=== PATIENT | female | born 1995 | race Caucasian/White ===

== ENCOUNTER 2017-10-03 10:12 | Emergency (ER) | payer BC ==
--- NOTE | 2017-10-03 10:37 | ED ---
Female Urogenital HPI - General Chief complaint: Urogenital Stated complaint: , cramping and spotting Time Seen by Provider: 10/03/17 10:22 Source: patient Mode of arrival: ambulatory Limitations: no limitations - History of Present Illness Initial comments: This is a 22-year-old female who presents emergency department for vaginal spotting and cramping. The patient states that she had a positive proximally 4 days ago. Her last menstrual period was August 27. She states that she has not had intercourse for approximately one week. She states that she noticed the symptoms yesterday and a little bit more today. She states that she is not passing any clots. She's not having any major amount of bleeding. Just spotting. She denies any lightheadedness, chest pain , shortness of breath. No abdominal pain otherwise. No nausea or vomiting. No diarrhea. No other acute complaints. Last Menstrual Period: 08/27/17 - Related Data Allergies Allergy/AdvReac Type Severity Reaction Status Date / Time No Known Allergies Allergy Verified 10/03/17 10:26 Review of Systems ROS Statement: Those systems with pertinent positive or pertinent negative responses have been documented in the HPI. ROS Other: All systems not noted in ROS Statement are negative. Past Medical History Past Medical History: No Reported History History of Any Multi-Drug Resistant Organisms: None Reported Past Surgical History: No Surgical Hx Reported Past Psychological History: No Psychological Hx Reported Smoking Status: Never smoker Past Alcohol Use History: None Reported Past Drug Use History: None Reported General Exam - General Exam Comments Initial Comments: Constitutional: Awake alert Appears comfortable Head: Normocephalic atraumatic Eyes: no conjunctival injection No scleral icterus EOMI Neck: No JVD Supple Heart: Regular rate rhythm normal S1-S2 no murmurs Lungs: Clear to auscultation bilaterally No wheezing No rales Abdomen: Soft nondistended nontender, no pelvic tenderness Extremities: Non edematous DP pulses intact Radial pulses intact Neuro: A&Ox3 No focal neurologic deficits Psych: Appropriate mood and affect Limitations: no limitations Course Vital Signs 10/03/17 10/03/17 10:21 12:04 Temperature 98.5 F 98.1 F Pulse Rate 76 86 Respiratory 18 16 Rate Blood Pressure 112/73 154/67 O2 Sat by Pulse 99 99 Oximetry Medical Decision Making - Medical Decision Making This is a 22-year-old female who came in for vaginal spotting. Patient was reportedly by home test. Last menstrual period was about 5 weeks ago. The patient had no significant tenderness on pelvic examination. Blood work was reviewed and unremarkable. Beta hCG was 1000. not beyond the discriminatory zone. Ultrasound was not performed however the patient was instructed to have her beta hCG repeated in 2 days. She was given a prescription for this and she is to follow-up with [facility] [employer]AVAS[employer] APPLICATION DEVELOPER for further evaluation. I instructed her if her pain gets acutely worsened or if the bleeding becomes heavier she needs return emergency Department for further evaluation. All questions were answered. - Lab Data Result diagrams: 10/03/17 10:45 10/03/17 10:45 Lab Results 10/03/17 10/03/17 10/03/17 Range/Units 10:45 10:45 10:45 WBC 4.9 (3.8-10.6) k/uL RBC 4.26 (3.80-5.40) m/uL Hgb 13.6 (11.4-16.0) gm/dL Hct 39.1 (34.0-46.0) % MCV 91.7 (80.0-100.0) fL MCH 32.0 (25.0-35.0) pg MCHC 34.9 (31.0-37.0) g/dL RDW 13.1 (11.5-15.5) % Plt Count 171 (150-450) k/uL Neutrophils % 56 % Lymphocytes % 29 % Monocytes % 11 % Eosinophils % 2 % Basophils % 1 % Neutrophils # 2.7 (1.3-7.7) k/uL Lymphocytes # 1.4 (1.0-4.8) k/uL Monocytes # 0.5 (0-1.0) k/uL Eosinophils # 0.1 (0-0.7) k/uL Basophils # 0.1 (0-0.2) k/uL Sodium 140 (137-145) mmol/L Potassium 4.7 (3.5-5.1) mmol/L Chloride 109 H (98-107) mmol/L Carbon Dioxide 19 L (22-30) mmol/L Anion Gap 12 mmol/L BUN 12 (7-17) mg/dL Creatinine 0.64 (0.52-1.04) mg/dL Est GFR (CKD-EPI)AfAm >90 (>60 ml/min/1.73 sqM) Est GFR (CKD-EPI)NonAf >90 (>60 ml/min/1.73 sqM) Glucose 67 L (74-99) mg/dL Calcium 9.2 (8.4-10.2) mg/dL Total Bilirubin 0.4 (0.2-1.3) mg/dL AST 23 (14-36) U/L ALT 13 (9-52) U/L Alkaline Phosphatase 40 (38-126) U/L Total Protein 6.7 (6.3-8.2) g/dL Albumin 3.7 (3.5-5.0) g/dL HCG, Quant 1044.0 mIU/mL Urine Color Urine Appearance (Clear) Urine pH (5.0-8.0) Ur Specific [place] (1.001-1.035) Urine Protein (Negative) Urine Glucose (UA) (Negative) Urine Ketones (Negative) Urine Blood (Negative) Urine Nitrite (Negative) Urine Bilirubin (Negative) Urine Urobilinogen (<2.0) mg/dL Ur Leukocyte Esterase (Negative) Urine RBC (0-5) /hpf Urine WBC (0-5) /hpf Ur Squamous Epith Cells (0-4) /hpf Urine Bacteria (None) /hpf Urine Mucus (None) /hpf Blood Type O Positive Blood Type Recheck No Antibody Screen NEGATIVE Spec Expiration Date 10/06/2017 - 234410/03/17 Range/Units 10:50 WBC (3.8-10.6) k/uL RBC (3.80-5.40) m/uL Hgb (11.4-16.0) gm/dL Hct (34.0-46.0) % MCV (80.0-100.0) fL MCH (25.0-35.0) pg MCHC (31.0-37.0) g/dL RDW (11.5-15.5) % Plt Count (150-450) k/uL Neutrophils % % Lymphocytes % % Monocytes % % Eosinophils % % Basophils % % Neutrophils # (1.3-7.7) k/uL Lymphocytes # (1.0-4.8) k/uL Monocytes # (0-1.0) k/uL Eosinophils # (0-0.7) k/uL Basophils # (0-0.2) k/uL Sodium (137-145) mmol/L Potassium (3.5-5.1) mmol/L Chloride (98-107) mmol/L Carbon Dioxide (22-30) mmol/L Anion Gap mmol/L BUN (7-17) mg/dL Creatinine (0.52-1.04) mg/dL Est GFR (CKD-EPI)AfAm (>60 ml/min/1.73 sqM) Est GFR (CKD-EPI)NonAf (>60 ml/min/1.73 sqM) Glucose (74-99) mg/dL Calcium (8.4-10.2) mg/dL Total Bilirubin (0.2-1.3) mg/dL AST (14-36) U/L ALT (9-52) U/L Alkaline Phosphatase (38-126) U/L Total Protein (6.3-8.2) g/dL Albumin (3.5-5.0) g/dL HCG, Quant mIU/mL Urine Color Yellow Urine Appearance Clear (Clear) Urine pH 6.0 (5.0-8.0) Ur Specific [place] 1.021 (1.001-1.035) Urine Protein Negative (Negative) Urine Glucose (UA) Negative (Negative) Urine Ketones Negative (Negative) Urine Blood Trace H (Negative) Urine Nitrite Negative (Negative) Urine Bilirubin Negative (Negative) Urine Urobilinogen <2.0 (<2.0) mg/dL Ur Leukocyte Esterase Negative (Negative) Urine RBC 1 (0-5) /hpf Urine WBC 1 (0-5) /hpf Ur Squamous Epith Cells 1 (0-4) /hpf Urine Bacteria Rare H (None) /hpf Urine Mucus Rare H (None) /hpf Blood Type Blood Type Recheck Antibody Screen Spec Expiration Date Disposition Clinical Impression: Threatened miscarriage Disposition: HOME SELF-CARE Condition: Stable Instructions: Threatened Miscarriage (ED) Referrals: Marcelo Renner DO [Primary Care Provider] - 1-2 days
[2017-10-03 11:03] LABS: ALT 13 U/L (9-52); AST 23 U/L (14-36); Albumin 3.7 g/dL (3.5-5.0); Alkaline Phosphatase 40 U/L (38-126); Anion Gap 12 mmol/L; Basophils # (A) 0.1 k/uL (0-0.2); Basophils % (A) 1 %; Blood Urea Nitrogen 12 mg/dL (7-17); Calcium 9.2 mg/dL (8.4-10.2); Carbon Dioxide 19 mmol/L (22-30); Chloride 109 mmol/L (98-107); Eosinophils # (A) 0.1 k/uL (0-0.7); Eosinophils % (A) 2 %; Glucose 67 mg/dL (74-99); HCT 39.1 % (34.0-46.0); HGB 13.6 gm/dL (11.4-16.0); Lymphocytes # (A) 1.4 k/uL (1.0-4.8); Lymphocytes % (A) 29 %; MCHC 34.9 g/dL (31.0-37.0); MCV 91.7 fL (80.0-100.0); Mean Platelet Volume 10.2; Monocytes # (A) 0.5 k/uL (0-1.0); Monocytes % (A) 11 %; Neutrophils # (A) 2.7 k/uL (1.3-7.7); Neutrophils % (A) 56 %; Platelet Count 171 k/uL (150-450); Potassium 4.7 mmol/L (3.5-5.1); RBC 4.26 m/uL (3.80-5.40); RDW 13.1 % (11.5-15.5); Sodium 140 mmol/L (137-145); Total Bilirubin 0.4 mg/dL (0.2-1.3); Total Protein 6.7 g/dL (6.3-8.2); WBC 4.9 k/uL (3.8-10.6)
[2017-10-03 11:13] LABS: Appearance,Urine Clear (Clear); Bacteria,Urine Rare /hpf; Bilirubin,Urine Negative (Negative); Blood,Urine Trace (Negative); Color,Urine Yellow; Glucose,Urine (UA) Negative (Negative); Ketones,Urine Negative (Negative); Leukocyte Esterase,Urine Negative (Negative); Mucus,Urine Rare /hpf; Nitrite,Urine Negative (Negative); Protein,Urine Negative (Negative); RBC,Urine 1 /hpf (0-5); Specific Gravity,Urine 1.021 (1.001-1.035); Squamous Epithelial Cell,Urine 1 /hpf (0-4); Urobilinogen,Urine <2.0 mg/dL (<2.0); WBC,Urine 1 /hpf (0-5)
[2017-10-03 12:04] VITALS: BP 154/67; PULSE 86; RESP 16; TEMP 98.1
== END 2017-10-03 12:06 | disposition home or self-care (01) ==
LOC: EC 10:12
DX: O20.0 Threatened abortion (principal); Z3A.01 Less than 8 weeks gestation of pregnancy
CPT/HCPCS: 36415; 80053; 81001; 84702; 85025; 86850; 86900; 86901; 99284

== ENCOUNTER → 2017-10-05 | Outpatient (CLI) | payer BC | END | disposition home or self-care (01) | LOC: LABWHC1 11:06 | PROVIDERS: ATTEND Student in an Organized Health Care Education/Training Program | DX: O20.0 Threatened abortion (principal); Z3A.00 Weeks of gestation of pregnancy not specified | CPT/HCPCS: 36415; 84702 ==

== ENCOUNTER 2018-06-05 23:16 | Inpatient (IN) | payer BC, OTHER ==
[2018-06-06] MEDS ORDERED: LIDOCAINE 1% INJ 10MG/ML (20 ML MDV) SQ PRN (00:05)
[2018-06-06] MEDS: LACTATED RINGERS 1,000 ML IV SCH ×6 (00:05→17:45)
[2018-06-06] MEDS ORDERED: METHYLERGONOVINE 0.2 MG/ML 1 ML AMP IM PRN (00:05)
[2018-06-06] MEDS ORDERED: TERBUTALINE 1 MG/ML VIAL SQ PRN (00:05)
[2018-06-06] MEDS ORDERED: CARBOPROST TROMETHAMINE 250 MCG/ML 1 ML AMP IM PRN (00:05)
[2018-06-06] MEDS ORDERED: OXYTOCIN 10 UNIT/ML 1 ML VIAL IM PRN (00:05)
[2018-06-06 00:07] VITALS: BMI 33.2
[2018-06-06 00:35] LABS: Basophils % (A) 0 %; Eosinophils # (A) 0.1 k/uL (0-0.7); Eosinophils % (A) 1 %; HCT 40.4 % (34.0-46.0); HGB 13.6 gm/dL (11.4-16.0); Lymphocytes # (A) 1.9 k/uL (1.0-4.8); Lymphocytes % (A) 13 %; MCH 31.2 pg (25.0-35.0); MCHC 33.6 g/dL (31.0-37.0); MCV 92.8 fL (80.0-100.0); Mean Platelet Volume 9.6; Monocytes # (A) 1.1 k/uL (0-1.0); Monocytes % (A) 7 %; Neutrophils % (A) 78 %; Platelet Count 184 k/uL (150-450); RBC 4.35 m/uL (3.80-5.40); RDW 13.6 % (11.5-15.5); WBC 15.3 k/uL (3.8-10.6)
[2018-06-06] MEDS ORDERED: BUTORPHANOL 1 MG/ML 1 ML VIAL IV PRN (05:00)
[2018-06-06] MEDS ORDERED: PENICILLIN G POTASSIUM 5,000,000 UNIT in DEXTROSE 5% IN WATER 100 ML IVPB STA ×2 (05:00)
[2018-06-06] MEDS: PENICILLIN G POTASSIUM 2,500,000 UNIT in DEXTROSE 5% IN WATER 100 ML IVPB SCH ×6 (09:35→17:45)
[2018-06-06] MEDS ORDERED: OXYTOCIN 20 UNITS/1000 ML NS 1,000 ML IV SCH ×2 (09:45→16:00)
--- NOTE | 2018-06-06 10:23 | P.HPOB ---
History of Present Illness H&P Date: 06/06/18 Chief Complaint: 38-5/7 weeks, possible early labor The patient is a 23-year-old 1 para 0 admitted through triage at 39-5/7 weeks by good dating parameters with possible early labor having fairly regular contractions. She did make some marginal cervical change while in triage but, of greater concern, had several random heart rate decelerations, one of which lasted for a number of minutes before return to baseline. Otherwise, heart tones are very reassuring. Given the heart rate concerns and the possibility of early labor, the patient was admitted for observation initially. At this time, we have opted to proceed with delivery as she continues to have occasional random decelerations of the heart rate. Her has been otherwise entirely uncomplicated though she is group B strep positive. Antibody prophylaxis has been started. Obstetrical history: 1 para 0 with current statistics listed in history present illness. EDC of 06/08/2018 was established by early ultrasound. Laboratory workup demonstrates a blood type of O+ with a negative antibody screen. Rubella status is immune. The remainder of the laboratory workup was within normal limits. Second trimester Glucola was normal and group B strep status is positive. Gynecologic history: Unremarkable with no history of any infections to include STDs. Review of Systems Review of systems is confined to history of present illness. Past Medical History Past Medical History: No Reported History History of Any Multi-Drug Resistant Organisms: None Reported Past Surgical History: No Surgical Hx Reported Past Anesthesia/Blood Transfusion Reactions: No Reported Reaction Past Psychological History: No Psychological Hx Reported Smoking Status: Never smoker Past Alcohol Use History: None Reported Past Drug Use History: None Reported - Past Family History Father Family Medical History: Cancer Additional Family Medical History / Comment(s): Throat Cancer Medications and Allergies Home Medications Medication Instructions Recorded Confirmed Type Pnv No.95/Ferrous Fum/Folic AC 1 each PO DAILY 06/05/18 06/05/18 History [ Multivitamin Tablet] Allergies Allergy/AdvReac Type Severity Reaction Status Date / Time No Known Allergies Allergy Verified 06/05/18 23:30 Exam Vital Signs Temp Pulse Resp BP 06/06/18 00:03 97.5 F L 98 16 125/78 06/05/18 23:20 97.5 F L 98 16 125/78 Intake and Output 06/05/18 06/06/18 06/06/18 22:59 06:59 14:59 Intake Total 1000 Balance 1000 Intake: Intake, IV Titration 1000 Amount Lactated Ringers 1,000 ml 1000 @ 125 mls/hr IV .Q8H [facility] Rx#:[id number] Other: # Voids 3 Weight 93.44 kg In general, this is a well-developed, well-nourished white female in no acute distress. Her heart has a regular rhythm and rate without murmur. Her lungs are clear to auscultation bilaterally in all samaniego. Her abdomen is gravid, nondistended, has normal active bowel sounds, is soft, nontender, and without any palpable masses aside from uterine fundus. Her extremities are without any cyanosis, clubbing, or edema and are nontender to palpation bilaterally. Digital cervical examination demonstrates her cervix to be approximately 3 cm dilated, 70% effaced, with the vertex in presentation at -2 station. Artificial rupture of membranes is carried out demonstrating clear fluid. Results Result Diagrams: 06/06/18 00:02 Abnormal Lab Results - Last 24 Hours (Table) 06/06/18 Range/Units 00:02 WBC 15.3 H (3.8-10.6) k/uL Neutrophils # 12.0 H (1.3-7.7) k/uL Monocytes # 1.1 H (0-1.0) k/uL Assessment and Plan (1) Group B streptococcal infection in Current Visit: Yes Status: Acute Code(s): O98.819 - OTH MATERNAL INFEC/ PARASTC DISEASES COMP PREG, UNSP TRI; B95.1 - STREPTOCOCCUS, GROUP B, CAUSING DISEASES CLASSD ELSWHR SNOMED Code(s): 837991079 (2) Term Current Visit: Yes Status: Acute Code(s): Z34.80 - ENCOUNTER FOR SUPRVSN OF NORMAL , UNSP TRIMESTER SNOMED Code(s): 40672751 Plan: As she did make some marginal cervical change the, the diagnosis of labor is likely. Of greater concern were the random decelerations in heart rate. Given both of these findings, we have opted to proceed with delivery. Pitocin augmentation has been started and she has had artificial rupture of membranes. She will continue to have close maternal and surveillance and expectant management will be practiced. Antibiotic prophylaxis has been started for group B strep. She is a good candidate for either IV or epidural analgesia, whichever she may choose.
[2018-06-06] MEDS ORDERED: ROPIVACAINE 100 MG, fentaNYL (PF) 200 MCG in SODIUM CHLORIDE 0.9% 76 ML EPIDURAL ONE (12:53)
[2018-06-06] MEDS ORDERED: CITRIC ACID-SODIUM CITRATE 15 ML CUP PO ONE ×2 (15:02→15:03)
[2018-06-06] MEDS ORDERED: ceFAZolin IN SWFI 2 GM/20 ML SYRINGE IVP ONE (15:15)
[2018-06-06] MEDS ORDERED: ZOLPIDEM 5 MG TAB PO PRN (15:54)
[2018-06-06] MEDS ORDERED: SIMETHICONE 80 MG CHEWABLE PO PRN (15:54)
[2018-06-06] MEDS ORDERED: NALOXONE 0.4 MG/ML 1 ML VIAL IV PRN (15:54)
[2018-06-06] MEDS ORDERED: ACETAMINOPHEN TAB 325 MG TAB PO PRN (15:54)
[2018-06-06] MEDS ORDERED: diphenhydrAMINE 25 MG CAP PO PRN (15:54)
[2018-06-06] MEDS ORDERED: METOCLOPRAMIDE 5 MG/ML 2 ML VIAL IVP PRN (15:54)
[2018-06-06] MEDS ORDERED: HYDROmorphone PCA 5 MG/25 ML SYRINGE IV PRN (15:54)
[2018-06-06] MEDS ORDERED: HYDROcodone/APAP 7.5-325MG 1 EACH TAB PO PRN (15:54)
[2018-06-06] MEDS ORDERED: diphenhydrAMINE 50 MG/ML 1 ML VIAL IVP PRN ×2 (15:54)
[2018-06-06] MEDS ORDERED: ONDANSETRON 4 MG/2 ML VIAL IVP PRN (15:54)
[2018-06-06] MEDS ORDERED: diphenhydrAMINE 50 MG CAP PO PRN (15:54)
--- NOTE | 2018-06-06 16:05 | P.OP ---
Date of Procedure: 06/06/18 Preoperative Diagnosis: #1. 39-5/7 weeks, labor #2. Nonreassuring heart tones remote from delivery #3. Group B strep colonization Postoperative Diagnosis: Same plus #4. Nuchal cord 1 Procedure(s) Performed: #1. Urgent primary low-transverse section Anesthesia: spinal Surgeon: Harjit [place] Supervisor #1: Demi Marie Estimated Blood Loss (ml): 350 IV fluids (ml): 900 Urine output (ml): 100 Pathology: other (Placenta) Condition: stable Disposition: floor Operative Findings: Preoperatively the patient had been making progress through the active phase of labor but continued to have fairly regular variable and occasionally deep decelerations with slow return to baseline. At approximately 7-8 cm of dilation , heart tones dipped below [address] for approximately 8-10 minutes though variability was maintained throughout. Pitocin was stopped and position changes effected and section called for. Heart tones returned to the 120s to 130s prior to proceeding to the operating room. In the operating room, the patient was delivered by section of a viable 6 lbs. 10 oz. baby girl with Apgars of 8 at 1 minute and 9 at 5 minutes delivered in the occiput anterior position. There was a nuchal cord 1 which was reduced prior to delivering the fetus. The substation design draftsperson was in attendance at the delivery and opted to bring the infant to the special care nursery for further observation and potential workup as she was retracting and working to breathe to some extent. The placenta was delivered manually, intact, and grossly normal with a grossly normal three-vessel cord. The uterus, tubes, and ovaries were entirely normal to inspection. Description of Procedure: The patient was prepped and draped in usual fashion after spinal anesthesia was administered by the anesthesiologist. A Pfannenstiel incision was made and extended into the abdominal cavity without difficulty. The bladder peritoneum was left intact as it was distal to the site of the incision. A 2 cm incision was made in the transverse plane of the lower uterine segment to enter the uterus at which time clear fluid was again noted. The incision was extended in both directions bluntly. The head was encountered deep within the pelvis and was ultimately elevated up and through the incision where the nose and mouth were thoroughly suctioned. The nuchal cord was reduced and the fetus was delivered onto the field where the cord was doubly clamped, cut, and the infant passed for resuscitative measures with weight and Apgars as noted above. A segment of cord was then doubly clamped, cut, and set aside should cord gases become necessary. The placenta was delivered manually and intact as noted above. The uterus was exteriorized and the interior cavity of the uterus swept of any remaining placental or membranous fragments. The margins of the incision were grasped with Chacon clamps and the incision closed in 2 layers. The first layer was a running locking stitch of 0 chromic catgut followed by a running imbricating layer of 0 chromic catgut, each from one side to the other. Following closure hemostasis appeared to be excellent. The posterior cul-de-sac was suctioned with a guard and the uterus returned to the abdominal cavity. The gutters were swept of any remaining blood, fluid, or clot and the incision reexamined and found to be hemostatic. The parietal peritoneum was loosely reapproximated in the layer of muscles examined and found to be hemostatic. The fascia was closed with a single running stitch of 0 Vicryl proceeding from one margin to the other. The subcutaneous tissues were irrigated and made hemostatic with the Bovie, then closed with a running stitch of 30 plain catgut. The skin was reapproximated with a running subcuticular stitch of 4-0 Vicryl from one margin to the other followed by half- inch Steri-Strips placed with Mastisol. Estimated blood loss for the case was approximately 350 mL. There were no complications. All sponge, instrument, and needle counts were correct. The patient tolerated the procedure well and proceeded to the recovery room in stable condition. Both mother and infant are resting comfortably in recovery though the has been taken the special care nursery as noted above.
[2018-06-06] MEDS: KETOROLAC 30 MG/ML 1 ML VIAL IVP PRN ×2 (18:02→23:59)
[2018-06-06] MEDS: SENNOSIDES-DOCUSATE SODIUM 1 EACH TAB PO SCH (19:32)
[2018-06-07] MEDS: LACTATED RINGERS 1,000 ML IV SCH
[2018-06-07 06:39] LABS: Basophils % (A) 0 %; Eosinophils # (A) 0.1 k/uL (0-0.7); Eosinophils % (A) 1 %; HCT 37.2 % (34.0-46.0); HGB 12.4 gm/dL (11.4-16.0); Lymphocytes # (A) 1.6 k/uL (1.0-4.8); Lymphocytes % (A) 9 %; MCH 31.3 pg (25.0-35.0); MCHC 33.4 g/dL (31.0-37.0); MCV 93.8 fL (80.0-100.0); Mean Platelet Volume 9.5; Monocytes % (A) 5 %; Neutrophils # (A) 15.7 k/uL (1.3-7.7); Neutrophils % (A) 84 %; Platelet Count 195 k/uL (150-450); RBC 3.97 m/uL (3.80-5.40); RDW 13.8 % (11.5-15.5); WBC 18.6 k/uL (3.8-10.6)
[2018-06-07] MEDS: SENNOSIDES-DOCUSATE SODIUM 1 EACH TAB PO SCH ×2 (08:38→19:36)
[2018-06-07] MEDS: KETOROLAC 30 MG/ML 1 ML VIAL IVP PRN (08:39)
[2018-06-07 08:58] VITALS: RESP 16
--- NOTE | 2018-06-07 11:25 | P.PN ---
Subjective Progress Note Date: 06/07/18 Principal diagnosis: Postoperative day #1 Slept well. No complaints. Minimal to moderate lochia rubra. Objective - Vital Signs Vital signs: Vital Signs Temp 97.8 F 06/07/18 08:00 Pulse 89 06/07/18 08:00 Resp 16 06/07/18 08:00 BP 117/67 06/07/18 08:00 Pulse Ox 98 06/07/18 08:00 Intake & Output 06/06/18 06/07/18 06/07/18 18:59 06:59 18:59 Intake Total 21.05 600 Output Total 300 850 Balance -278.95 -250 Intake: Intake, IV Titration 21.05 Amount Oxytocin 20 Units/1000 ml 21.05 Ns 1,000 ml @ 1 MILLIUNIT/MIN 3 mls/hr IV .Q24H [facility] Rx#:[id number] Other 600 Output: Urine 300 850 Uretheral (Rosen) 550 Other: # Voids 1 1 1 - Constitutional General appearance: Present: average body habitus, cooperative - EENT Eyes: Present: PERRLA ENT: Present: hearing grossly normal - Neck Neck: Present: normal ROM - Respiratory Respiratory: bilateral: CTA - Cardiovascular Rhythm: regular - Gastrointestinal General gastrointestinal: Present: normal bowel sounds - Integumentary Integumentary Comment(s): Incision clean and dry, intact, no redness or drainage. Fundus firm, midline, symmetric, 18 week size Integumentary: Present: normal - Neurologic Neurologic: Present: CNII-XII intact - Musculoskeletal Musculoskeletal: Present: gait normal, strength equal bilaterally - Psychiatric Psychiatric: Present: A&O x's 3, appropriate affect, intact judgment & insight - Labs CBC & Chem 7: 06/07/18 06:29 Labs: Abnormal Lab Results - Last 24 Hours (Table) 06/07/18 Range/Units 06:29 WBC 18.6 H (3.8-10.6) k/uL Neutrophils # 15.7 H (1.3-7.7) k/uL Assessment and Plan Assessment: Doing well postoperative day #1. CBC stable. No complaints. Plan: May DC IV. Advanced diet and activity. May shower. Time with Patient: Less than 30
[2018-06-07] MEDS: HYDROcodone/APAP 5-325MG 1 EACH TAB PO PRN ×2 (13:02→19:36)
[2018-06-07] MEDS: IBUPROFEN 600 MG TAB PO PRN (16:47)
[2018-06-08] MEDS: IBUPROFEN 600 MG TAB PO PRN ×2 (00:31→06:44)
--- NOTE | 2018-06-08 07:43 | P.DS ---
Providers Date of admission: 06/05/18 23:59 Expected date of discharge: 06/08/18 Attending physician: Harjit Gonzales Primary care physician: [facility] Course: This is a 23-year-old white female 1 para 0 EDC 06/08/2018 at 39-5/7 weeks' gestation. Patient presented in active spontaneous labor. was unremarkable, group B strep cultures positive, rubella status immune, blood type O positive. Penicillin G prophylaxis was initiated and patient received several doses through the course of labor. Please see dictated history and physical for details. Patient ultimately experienced concerning heart tones and the decision was made to proceed with primary low transverse section. She gave to a liveborn female with scores of 8 and 9 at one and 5 minutes respectively. There was a nuchal cord 1 that was documented. Infant weighed 6 lbs. 10 oz. or 3160 g. Please see dictated delivery note for details. This morning the patient is doing well. She is voiding, ambulating and passing flatus without difficulty. Vital signs are stable and she is afebrile. Breasts are not engorged. Fundus is firm and in the midline, symmetric and 18 week size. Extremities are negative for edema. Incision is clean and dry, well approximated, with Steri-Strips applied. Patient is doing well, and is judged to be in very good condition for discharge home. She will follow-up with me in the office in 2 weeks. I have reminded her no intercourse, tampons or douching. She will use [id number] Advil or Aleve as needed for pain, ibuprofen, 600 mg every 6 hours as needed. She will call me with any fevers shakes or chills, foul smelling or copious lochia, with the passage of large blood clots, with any pain not alleviated by over-the- counter products, or indeed with any concerns. No driving, no heavy lifting. Nelson will follow-up with block bolter mule operator as recommended. Patient Condition at Discharge: Good Plan - Discharge Summary Discharge Rx Participant: No New Discharge Prescriptions: No Action Pnv No.95/Ferrous Fum/Folic AC [ Multivitamin Tablet] 1 each PO DAILY Discharge Medication List Pnv No.95/Ferrous Fum/Folic AC [ Multivitamin Tablet] 1 each PO DAILY [History] Follow up Appointment(s)/Referral(s): Mary Leon MD [Primary Care Provider] - 2 Weeks Discharge Disposition: HOME SELF-CARE
[2018-06-08 08:48] VITALS: BP 133/78; PULSE 95; TEMP 98.1
[2018-06-08] MEDS: SENNOSIDES-DOCUSATE SODIUM 1 EACH TAB PO SCH (10:41)
--- NOTE | 2018-06-09 12:36 | P.MSEPDOC ---
Presenting Problems - Arrival Data Date of Arrival on Unit: 06/06/18 Time of Arrival on Unit: 00:10 Mode of Transport: Wheelchair - Complaint OB-Reason for Admission/Chief Complaint: Possible Onset of Labor Comment: Contractions every 4 minutes since 2029 Medical History - Information : 1 Para: 0 Term: 0 : 0 Abortions: Spontaneous or Elective: 0 Number of Living Children: 0 - Gestational Age Gestational Age by LOUIS (wks/days): 39 Weeks and 5 Days - History Complications: GBS+ Review of Systems - Review of Systems Constitutional: No problems Breast: No problems ENT: No problems Cardiovascular: No problems Respiratory: No problems Gastrointestinal: No problems Genitourinary: No problems Musculoskeletal: No problems Neurological: No problems Skin: No problems Vital Signs - Temperature Temperature: 98.1 F Temperature Source: Oral - Pulse Pulse Oximetery Pulse Rate: 95 Pulse Assessment Method: Automatic Cuff - Respirations Respiratory Rate: 16 Oxygen Delivery Method: Room Air - Blood Pressure Sitting Blood Pressure: 133/78 Blood Pressure Mean: 96 Blood Pressure Source: Automatic Cuff Medical Screen Scoring (Pre) - Cervical Exam Dilation: 1-3 cm = 1 Membranes: Intact - Uterine Contractions Frequency: > or = 36 weeks =2 Duration: > 40 seconds = 2 Intensity: N/A - Maternal Vital Signs Maternal Temperature: N/A Maternal Blood Pressure: N/A Signs of Preeclampsia: N/A Maternal Respirations: N/A - Maternal Trauma Maternal Trauma: N/A - Assessment Baseline FHR: 135 Heart Rate - NICHD Category: Category I (Normal) = 0 NST: Reactive Position: N/A Station: N/A - Total Score Total Score (Pre): 5 - Level of Risk Level of Risk: Low (0-5) Physician Notification (Pre) - Notification Comment Comment: Physician in unit and in to see patient. I agree with the RN Medical Screening Exam: Yes Risk & Benefit of care provided described in d/c instruction: Yes Diagnosis: ENCOUNTER FOR FULL-TERM UNCOMPLICATED DELIVERY
== END 2018-06-08 10:37 | disposition home or self-care (01) | DRG 788 ==
LOC: FBPOP 23:16 → 4FBP 23:59
PROVIDERS: ADMIT Obstetrics & Gynecology; ATTEND Obstetrics & Gynecology
PROC: 10D00Z1 Extraction of Products of Conception, Low, Open Approach (ICD-10-PCS; principal; 2018-06-06 15:15)
DX: O76 Abnormality in fetal heart rate and rhythm complicating labor and delivery (principal); O69.81X0 Labor and delivery complicated by cord around neck, without compression, not applicable or unspecified; O99.824 Streptococcus B carrier state complicating childbirth; Z37.0 Single live birth; Z3A.39 39 weeks gestation of pregnancy; Z80.8 Family history of malignant neoplasm of other organs or systems
CPT/HCPCS: 59025; 85025; 86850; 86900; 86901; 88307; 99213

== ENCOUNTER → 2020-08-16 | Outpatient (CLI) | payer OTHER ==
--- NOTE | 2020-08-16 15:02 | US ---
EXAMINATION TYPE: US OB >= 14 wk fetus DATE OF EXAM: 08/16/2020 COMPARISON: None CLINICAL HISTORY: R10.32 ABD PAIN LLQ, sharp LLQ pain last night that is dull today, TECHNIQUE: OBTA GESTATIONAL AGE / DATING Physician Established: (16 weeks/5 days) EDC: 01/26/2021 Dates by LMP: LMP unknown Dates by First Scan: No previous this is first scan Dates by Current Scan: (17 weeks/2 days) EDC: 01/22/2021 SURVEY IUP: Single PLACENTA: Anterior PREVIA: No Previa STEFAN: 11.9 cm Normal CERVICAL LENGTH (transabdominal: norm > 3.0cm): 3.5 cm BIOMETRY PRESENTATION: Variable BPD: 3.9 cm 18 weeks / 0 days HC: 14.1 cm 17 weeks / 4 days AC: 10.8 cm 16 weeks / 6 days FL: 2.2 cm 16 weeks / 5 days ESTIMATED WEIGHT IN GRAMS: 169 grams ESTIMATED WEIGHT IN LBS/OZ: 0 lbs. 6 oz. WEIGHT PERCENTAGE BASED ON ESTABLISHED DATES: 47% HC/AC: 1.3 Normal FL/AC: 20 Abnormal HEART RATE: 134 bpm RHYTHM: Normal Scanned area of patients pain within LLQ, exophytic cyst seen off of left ovary = 2.5cm Tech impression give to Deena at office IMPRESSION: 1. Single intrauterine gestation estimated at 17 weeks 2 days gestation based on current ultrasound m easurements. Cardiac activity measuring 134 bpm was observed during the study
== END | disposition home or self-care (01) ==
LOC: RADUSWWP 14:04
PROVIDERS: ATTEND Obstetrics & Gynecology
DX: O26.892 Other specified pregnancy related conditions, second trimester (principal); Z3A.17 17 weeks gestation of pregnancy
CPT/HCPCS: 76805

== ENCOUNTER 2020-12-08 15:52 | Outpatient (CLI) | payer OTHER ==
[2020-12-08] MEDS ORDERED: LACTATED RINGERS 1,000 ML IV SCH ×2 (17:00→18:30)
[2020-12-08 19:42] VITALS: BP 120/75; PULSE 89; RESP 16; TEMP 98.4
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
== END 2020-12-08 19:40 | disposition home or self-care (01) ==
LOC: FBPOP 15:52
PROVIDERS: ATTEND Obstetrics & Gynecology
DX: O9A.213 Injury, poisoning and certain other consequences of external causes complicating pregnancy, third trimester (principal); Z3A.33 33 weeks gestation of pregnancy; Z53.9 Procedure and treatment not carried out, unspecified reason

== ENCOUNTER 2021-01-21 08:03 | Inpatient (IN) | payer OTHER ==
[2021-01-18 12:09] VITALS: BMI 37.9
[2021-01-21] MEDS ORDERED: CITRIC ACID-SODIUM CITRATE 15 ML CUP PO ONE (08:07)
[2021-01-21] MEDS: LACTATED RINGERS 1,000 ML IV SCH ×4 (08:42→22:41)
--- NOTE | 2021-01-21 09:42 | P.HPOB ---
History of Present Illness H&P Date: 01/21/21 Chief Complaint: For elective repeat section This is a 26-year-old white female 2 para 1001 EDC 01/26/2021 at 39-2/7 weeks' gestation. Patient had a previous section and is declining the option of . She is here for repeat section, declining the option of tubal ligation. She is having irregular mild uterine contractions. Denies fluid leakage or vaginal bleeding. Fetus is been active throughout the . history significant for blood type O positive, rubella status immune. VDRL testing, urine culture, hepatitis B surface antigen, HIV testing, gonorrhea and chlamydia cultures all negative. One-hour Glucola 80. Positive group B strep cultures. Past history is unremarkable. Past surgical history low transverse section 2018 for nonreassuring heart tones. ALLERGIES none known. Current medications vitamins. Family history significant for throat cancer. Social history patient is unmarried, she is a manager pet, she denies tobacco or alcohol use. On exam patient is 5 foot 6 inches, 235 pounds, blood pressure 143/74, pulse 94, respirations 18, temperature 97.0. The general physical exam is within normal limits. The heart rate is consistent with reactive NST. Chest is clear in all samaniego. Extremities reveal no edema. Infant is vertex to Chance's maneuvers. Cervix is long thick and closed. Impression: 39-2/7 weeks intrauterine , here for repeat section, declining option of tubal ligation. Positive group B strep cultures noted. Plan: Antibiotics had been given. We will proceed with repeat low transverse section. All risks and benefits discussed with the patient. Again she is declining option of . Review of Systems Constitutional: Reports as per HPI Past Medical History Past Medical History: No Reported History History of Any Multi-Drug Resistant Organisms: None Reported Past Surgical History: Section Additional Past Surgical History / Comment(s): emergency c section Past Anesthesia/Blood Transfusion Reactions: No Reported Reaction Past Psychological History: No Psychological Hx Reported Smoking Status: Never smoker Past Alcohol Use History: None Reported Past Drug Use History: None Reported - Past Family History Father Family Medical History: Cancer Additional Family Medical History / Comment(s): Throat Cancer Medications and Allergies Home Medications Medication Instructions Recorded Confirmed Type Pnv No.95/Ferrous Fum/Folic AC 1 each PO DAILY 06/05/18 01/21/21 History [ Multivitamin Tablet] Allergies Allergy/AdvReac Type Severity Reaction Status Date / Time No Known Allergies Allergy Verified 01/18/21 12:04 Exam Vital Signs Temp Pulse Resp BP Pulse Ox 01/21/21 08:05 97.0 F L 94 18 143/74 96 Intake and Output 01/20/21 01/21/21 01/21/21 22:59 06:59 14:59 Other: Weight 106.594 kg See dictation under HPI please Assessment and Plan Assessment: 39-2/7 weeks intrauterine , positive group B strep cultures, here for repeat low transverse section, declining option of . All signs reassuring. Plan: Repeat low transverse section at this time. Antibiotics given. All risks benefits and questions addressed. Time with Patient: Less than 30
[2021-01-21 10:02] LABS: Basophils % (A) 0 %; Eosinophils # (A) 0.1 k/uL (0-0.7); Eosinophils % (A) 1 %; HCT 40.2 % (34.0-46.0); HGB 14.4 gm/dL (11.4-16.0); Lymphocytes # (A) 1.5 k/uL (1.0-4.8); Lymphocytes % (A) 16 %; MCHC 35.9 g/dL (31.0-37.0); MCV 92.1 fL (80.0-100.0); Mean Platelet Volume 10.1; Monocytes # (A) 0.5 k/uL (0-1.0); Monocytes % (A) 6 %; Neutrophils # (A) 6.8 k/uL (1.3-7.7); Neutrophils % (A) 75 %; Platelet Count 150 k/uL (150-450); RBC 4.37 m/uL (3.80-5.40); RDW 13.6 % (11.5-15.5); WBC 9.1 k/uL (3.8-10.6)
[2021-01-21] MEDS ORDERED: MORPHINE SULFATE (PF) 0.3 MG/0.3 ML SYR ONE (10:13)
[2021-01-21] MEDS ORDERED: OXYTOCIN 30 UNITS/500 ML NS BAG IV ONE (10:13)
[2021-01-21] MEDS ORDERED: ONDANSETRON 4 MG/2 ML VIAL ONE (10:13)
[2021-01-21] MEDS ORDERED: KETOROLAC 15 MG/ML 1 ML VIAL ONE (10:13)
[2021-01-21] MEDS ORDERED: ePHEDrine SULFATE/0.9% NACL/PF 50 MG/5 ML SYRINGE IV ONE (10:13)
[2021-01-21] MEDS ORDERED: ZOLPIDEM 5 MG TAB PO PRN (11:05)
[2021-01-21] MEDS ORDERED: diphenhydrAMINE 50 MG/ML 1 ML VIAL IVP PRN ×2 (11:05)
[2021-01-21] MEDS ORDERED: diphenhydrAMINE 25 MG CAP PO PRN (11:05)
[2021-01-21] MEDS ORDERED: SIMETHICONE 80 MG CHEWABLE PO PRN (11:05)
[2021-01-21] MEDS ORDERED: ONDANSETRON 4 MG/2 ML VIAL IVP PRN (11:05)
[2021-01-21] MEDS ORDERED: NALOXONE 0.4 MG/ML 1 ML VIAL IV PRN (11:05)
[2021-01-21] MEDS ORDERED: diphenhydrAMINE 50 MG CAP PO PRN (11:05)
[2021-01-21] MEDS ORDERED: METOCLOPRAMIDE 5 MG/ML 2 ML VIAL IVP PRN (11:05)
--- NOTE | 2021-01-21 11:05 | P.OP ---
Date of Procedure: 01/21/21 Preoperative Diagnosis: 39-2/7 weeks intrauterine , previous section declining . Postoperative Diagnosis: Same, liveborn male . Normal-appearing tubes and ovaries bilaterally. Procedure(s) Performed: Repeat low transverse section Anesthesia: spinal Surgeon: Mary Leon Preventive Medicine Physician #1: Chrissy Fang Estimated Blood Loss (ml): 568 IV fluids (ml): 1,200 Urine output (ml): 75 Pathology: none sent Condition: stable Disposition: PACU Description of Procedure: Patient is brought to the operating suite where a spinal with Duramorph is administered without difficulty. Antibiotics are given. She's placed in the dorsal supine position with left lateral uterine displacement. Rosen catheter sent drainage. Bicitra given. The appropriate timeout is performed to assure the proper patient and procedural documentation. The analgesia is topped and noted to be adequate. A repeat low transverse skin incision is made in this is carried down through the subcutaneous tissue which is approximately 6 cm in depth. Fascia is isolated, scored, extended bilaterally with curved Bull scissors. Peritoneum is next identified and incised, there is no bowel or bladder involvement. Bladder blade is placed over the dome of the bladder. Bladder is well from the operative field and therefore not separately dissected. A repeat low transverse uterine incision is made in this is carried down through the myometrium. Artificial amniorrhexis reveals clear fluid. Infant's head is delivered in the occiput anterior position. Umbilical cord is doubly clamped and ligated, he is handed to waiting nurses for evaluation where scores of 9 and 9 at one and 5 minutes respectively were given. time of baby B 1029, placenta delivers manually, inspected and noted to be i ntact with trivascular cord at 10:30. The uterus is then externalized and wiped clean with a sterile sponge to avoid any retained products of conception. The edges of the incision are grasped with Chacon clamps. The uterus is closed in a two-step fashion. First layer is running locking with 0 Vicryl suture, second layer is imbricated with 0 Vicryl suture as well. An additional [id number] sutures placed in the left lower uterine segment. Hemostasis is excellent. Ovaries and tubes appear normal to inspection. Abdomen is suctioned with suction on guard posterior to the uterus and the uterus is gently placed back into the abdominal cavity. Bilateral gutters are inspected and cleaned. Peritoneum is allowed to close by secondary intention. Fascia is reapproximated with a running stitch of 0 Vicryl with excellent reapproximation noted. Subcutaneous tissue is clean and dry. It is irrigated and once again reinspected. It is reapproximated with a 3-0 Vicryl in a running stitch. 4-0 undyed Monocryl is used for final skin closure. Steri-Strips and Mastisol are applied to the wound. Dressing is placed. Uterus is massaged for a small amount of lochia. Rosen is noted to be draining clear urine. Patient is brought back to the recovery room in excellent condition with a blood pressure 135/55, pulse 80, 100% O2 saturation. Patient and her are allowed to begin the bonding experience in the LDR. They are requesting circumcision for their son who weighs 3800 g or 8 lbs. 6 oz.
[2021-01-21] MEDS: ACETAMINOPHEN TAB 500 MG TAB PO SCH (17:23)
[2021-01-21] MEDS: IBUPROFEN 600 MG TAB PO SCH (20:12)
[2021-01-21] MEDS: SENNOSIDES-DOCUSATE SODIUM 1 EACH TAB PO SCH (20:12)
[2021-01-22] MEDS: ACETAMINOPHEN TAB 500 MG TAB PO SCH ×5 (00:37→22:28)
[2021-01-22] MEDS: IBUPROFEN 600 MG TAB PO SCH ×4 (04:12→22:29)
[2021-01-22 05:44] LABS: Basophils % (A) 0 %; Eosinophils # (A) 0.1 k/uL (0-0.7); Eosinophils % (A) 1 %; HCT 36.9 % (34.0-46.0); HGB 12.3 gm/dL (11.4-16.0); Lymphocytes # (A) 1.5 k/uL (1.0-4.8); Lymphocytes % (A) 13 %; MCH 32.5 pg (25.0-35.0); MCHC 33.5 g/dL (31.0-37.0); Mean Platelet Volume 11.5; Monocytes # (A) 0.8 k/uL (0-1.0); Monocytes % (A) 7 %; Neutrophils # (A) 8.6 k/uL (1.3-7.7); Neutrophils % (A) 78 %; Platelet Count 133 k/uL (150-450); RDW 13.8 % (11.5-15.5); WBC 11.1 k/uL (3.8-10.6)
--- NOTE | 2021-01-22 07:01 | P.PN ---
Progress Note - Text 01/22/21 650am 26-year-old female status post with spinal Duramorph. Patient seen and evaluated for postop pain control this morning, patient has a VAS of 3, no complains of nausea vomiting or pruritus.
--- NOTE | 2021-01-22 07:47 | P.PN ---
Subjective Progress Note Date: 01/22/21 Principal diagnosis: Postoperative day #1 Slept well. Positive flatus. Pain well managed. No complaints. Objective - Vital Signs Vital signs: Vital Signs Temp 98.0 F 01/22/21 04:00 Pulse 78 01/22/21 04:00 Resp 16 01/22/21 04:00 BP 125/70 01/22/21 04:00 Pulse Ox 97 01/22/21 04:00 Intake & Output 01/21/21 01/22/21 01/22/21 18:59 06:59 18:59 Intake Total 400 Output Total 400 2550 Balance 0 -2550 Weight 106.594 kg Intake: Oral 400 Output: Urine 400 2550 Uretheral (Rosen) 1000 Other: # Voids 1 - Constitutional General appearance: Present: average body habitus, cooperative - EENT Eyes: Present: PERRLA ENT: Present: hearing grossly normal - Neck Neck: Present: normal ROM - Respiratory Respiratory: bilateral: CTA - Cardiovascular Rhythm: regular - Gastrointestinal Gastrointestinal Comment(s): Incision clean and dry, intact, Steri-Strips applied. Fundus firm, midline, symmetric, 18 week size. - Integumentary Integumentary: Present: normal - Neurologic Neurologic: Present: CNII-XII intact - Musculoskeletal Musculoskeletal: Present: gait normal, strength equal bilaterally - Psychiatric Psychiatric: Present: A&O x's 3, appropriate affect, intact judgment & insight - Labs CBC & Chem 7: 01/22/21 05:02 Labs: Abnormal Lab Results - Last 24 Hours (Table) 01/22/21 Range/Units 05:02 WBC 11.1 H (3.8-10.6) k/uL Plt Count 133 L (150-450) k/uL Neutrophils # 8.6 H (1.3-7.7) k/uL Assessment and Plan Assessment: Doing well postoperative day #1 Plan: Circumcision on her performed. Continue postoperative care. Anticipate discharge home tomorrow. Time with Patient: Less than 30
[2021-01-22] MEDS: SENNOSIDES-DOCUSATE SODIUM 1 EACH TAB PO SCH ×2 (08:13→20:05)
[2021-01-22 16:30] VITALS: PULSE 86
[2021-01-23] MEDS: IBUPROFEN 600 MG TAB PO SCH ×2 (00:25→06:33)
[2021-01-23 01:01] VITALS: RESP 16
[2021-01-23] MEDS: ACETAMINOPHEN TAB 500 MG TAB PO SCH ×2 (03:45→09:45)
--- NOTE | 2021-01-23 07:57 | P.DS ---
Providers Date of admission: 01/21/21 08:03 Expected date of discharge: 01/23/21 Attending physician: Mary Leon Primary care physician: Stated None Hospital Course: This is a 26-year-old white female 2 para 1001 EDC 01/26/2021 at 39-2/7 weeks' gestation. Patient presented for repeat low transverse section. is unremarkable, blood type O+, rubella status immune. Positive group B strep cultures. Please see dictated history and physical for details. Patient underwent a repeat low transverse section and gave to a liveborn male infant with scores of 9 and 9 at one and 5 minutes respe ctively. Infant weight 8 lbs. 6 oz. or 3800 g. Estimated blood loss at surgery 568 mL's. Please see dictated operative note for details. This morning the patient is doing well. She is voiding, ambulating, passing flatus without difficulty. Vital signs are stable and she is afebrile. Fundus is firm and in the midline, symmetric and 18 week size. Extremities are negative for edema. Incision is clean and dry, intact, Steri-Strips applied. Fundus is firm and in the midline, symmetric and 18 week size. Breast-feeding is going well. infant is doing well. Patient is judged to be in very good condition for discharge home. She will follow-up with me in the office in 2 weeks for incision check. She is reminded no intercourse, tampons or douching. We have discussed contraceptive options and we will discuss this further in the office. She will call with any fevers shakes or chills, foul smelling or copious lochia, with the passage of large blood clots, with any pain not alleviated by [id number] products, with any incisional issues, or indeed with any concerns. Assessment: Doing well second post operative day Patient Condition at Discharge: Good Plan - Discharge Summary New Discharge Prescriptions: No Action Pnv No.95/Ferrous Fum/Folic AC [ Multivitamin Tablet] 1 each PO DAILY Discharge Medication List Pnv No.95/Ferrous Fum/Folic AC [ Multivitamin Tablet] 1 each PO DAILY 06/05/18 [History] Follow up Appointment(s)/Referral(s): Mary Leon MD [STAFF PHYSICIAN] - 2 Weeks Discharge Disposition: HOME SELF-CARE
[2021-01-23 08:17] VITALS: BP 118/70; TEMP 97.4
[2021-01-23] MEDS: SENNOSIDES-DOCUSATE SODIUM 1 EACH TAB PO SCH (09:46)
== END 2021-01-23 10:15 | disposition home or self-care (01) | DRG 788 ==
LOC: 4FBP 08:03
PROVIDERS: ADMIT Obstetrics & Gynecology; ATTEND Obstetrics & Gynecology
PROC: 10D00Z1 Extraction of Products of Conception, Low, Open Approach (ICD-10-PCS; principal; 2021-01-21 10:00)
DX: O34.211 Maternal care for low transverse scar from previous cesarean delivery (principal); O99.824 Streptococcus B carrier state complicating childbirth; Z37.0 Single live birth; Z3A.39 39 weeks gestation of pregnancy; Z80.8 Family history of malignant neoplasm of other organs or systems
CPT/HCPCS: 85025; 86850; 86900; 86901

== ENCOUNTER 2023-08-27 10:08 | Inpatient (IN) | payer OTHER ==
[2023-08-24 15:46] VITALS: BMI 37.1
[2023-08-27] MEDS ORDERED: OXYTOCIN 10 UNIT/ML 1 ML VIAL IM PRN (10:17)
[2023-08-27] MEDS ORDERED: TRANEXAMIC 1,000 MG/100ML-NACL 1,000 MG in EMPTY BAG 1 BAG IV PRN (10:17)
[2023-08-27] MEDS ORDERED: miSOPROStoL 200 MCG TAB PO PRN (10:17)
[2023-08-27] MEDS ORDERED: METHYLERGONOVINE 0.2 MG/ML 1 ML AMP IM PRN (10:17)
[2023-08-27] MEDS ORDERED: CARBOPROST TROMETHAMINE 250 MCG/ML 1 ML AMP IM PRN (10:17)
[2023-08-27] MEDS: LACTATED RINGERS 1,000 ML IV ONE (10:28)
[2023-08-27] MEDS ORDERED: OXYTOCIN 30 UNITS/500 ML NS 30 UNIT in SALINE 1 500ML.BAG IV SCH (10:30)
[2023-08-27] MEDS: CITRIC ACID-SODIUM CITRATE 15 ML CUP PO ONE (11:44)
[2023-08-27 11:46] LABS: Basophils % (A) 1 %; Eosinophils # (A) 0.1 k/uL (0-0.7); Eosinophils % (A) 1 %; HCT 38.6 % (34.0-46.0); HGB 13.4 gm/dL (11.4-16.0); Lymphocytes # (A) 1.2 k/uL (1.0-4.8); Lymphocytes % (A) 18 %; MCH 32.8 pg (25.0-35.0); MCHC 34.7 g/dL (31.0-37.0); MCV 94.4 fL (80.0-100.0); Mean Platelet Volume 11.2; Monocytes # (A) 0.4 k/uL (0-1.0); Monocytes % (A) 6 %; Neutrophils # (A) 4.9 k/uL (1.3-7.7); Neutrophils % (A) 73 %; Platelet Count 149 k/uL (150-450); RBC 4.09 m/uL (3.80-5.40); WBC 6.7 k/uL (3.8-10.6)
[2023-08-27] MEDS ORDERED: NALBUPHINE 10 MG/ML (10 ML MDV) ONE (12:09)
[2023-08-27] MEDS ORDERED: ONDANSETRON 4 MG/2 ML VIAL ONE (12:09)
[2023-08-27] MEDS ORDERED: MORPHINE SULFATE (PF) 0.3 MG/0.3 ML SYR ONE (12:09)
[2023-08-27] MEDS ORDERED: OXYTOCIN 10 UNIT/ML 1 ML VIAL ONE (12:09)
[2023-08-27] MEDS ORDERED: PHENYLEPHRINE-0.9% NACL SYG 1,000 MCG/10 ML SYRINGE ONE (12:09)
[2023-08-27 12:15] LABS: Large Platelets Present; RBC Morphology Normal
--- NOTE | 2023-08-27 13:03 | P.HPOB ---
History of Present Illness H&P Date: 08/27/23 Chief Complaint: IUP at 39-0/7 weeks, history of x 2 desires repeat 28-year-old -0-0-2 at 39 weeks of that presents for scheduled repeat section. Patient has been receiving routine care which has been essentially uncomplicated. Patient denies concerns this morning. She notes good movement denies contractions vaginal bleeding or loss of fluid. On blood work this patient is open type of O+, rubella status immune, hepatitis B surface engine negative, HIV negative, RPR is nonreactive, grew beta strep culture is positive. Review of Systems Constitutional: Denies chills, Denies fatigue, Denies fever Ears, nose, mouth and throat: Denies headache Cardiovascular: Reports leg edema Respiratory: Denies dyspnea Gastrointestinal: Denies constipation, Denies diarrhea, Denies nausea, Denies vomiting Genitourinary: Reports Past Medical History Past Medical History: GERD/Reflux Additional Past Medical History / Comment(s): Acid reflux during only. History of Any Multi-Drug Resistant Organisms: None Reported Past Surgical History: Section Additional Past Surgical History / Comment(s): Emergency . Past Anesthesia/Blood Transfusion Reactions: No Reported Reaction Additional Past Anesthesia/Blood Transfusion Reaction / Comment(s): No hx blood transfusion. Past Psychological History: No Psychological Hx Reported Smoking Status: Never smoker Past Alcohol Use History: None Reported Past Drug Use History: None Reported - Past Family History Father Family Medical History: Cancer Additional Family Medical History / Comment(s): Throat Cancer. Medications and Allergies Home Medications Medication Instructions Recorded Confirmed Type Pnv No.95/Ferrous Fum/Folic AC 1 each PO DAILY 06/05/18 08/27/23 History [ Multivitamin Tablet] L.acidoph,Paracasei, B.lactis 1 each PO DAILY 08/24/23 08/27/23 History [Probiotic] Allergies Allergy/AdvReac Type Severity Reaction Status Date / Time No Known Allergies Allergy Verified 08/27/23 10:13 Exam Osteopathic Statement: *. No significant issues noted on an osteopathic structural exam other than those noted in the History and Physical/Consult. Vital Signs Temp Pulse Resp BP Pulse Ox 08/27/23 10:20 96.3 F L 87 16 122/73 100 Intake and Output 02/08/27/23 08/27/23 22:59 06:59 14:59 Other: Weight 104.326 kg Targeted physical exam is performed this date General is well-nourished well- developed female in no acute distress, breathing is noted to be nonlabored, heart has a regular rate and rhythm, abdomen is gravid and appropriate for gestational age, heart tones are noted to be category 1 and she is not mathew, cervical exam is deferred. Results Result Diagrams: 08/27/23 11:06 Abnormal Lab Results - Last 24 Hours (Table) 08/27/23 Range/Units 11:06 Plt Count 149 L (150-450) k/uL Assessment and Plan (1) History of section Current Visit: Yes Status: Acute Code(s): Z98.891 - HISTORY OF UTERINE SCAR FROM PREVIOUS SURGERY SNOMED Code(s): 825791911 (2) Group B streptococcal infection in Current Visit: No Status: Acute Code(s): O98.819 - OTH MATERNAL INFEC/PARASTC DISEASES COMP PREG, UNSP TRI; B95.1 - STREPTOCOCCUS, GROUP B, [facility] Code(s): 855010490 (3) Term Current Visit: No Status: Acute Code(s): Z34.80 - ENCOUNTER FOR SUPRVSN OF NORMAL , UNSP TRIMESTER SNOMED Code(s): 65900484 Plan: 28-year-old -0-0-2 at 39-0/7 weeks presents for scheduled repeat section. Procedure was reviewed and questions were answered. Risks are reviewed including but not limited to infection, bleeding, damage to bladder, bowel, injury. Patient states understanding and wishes to proceed.
[2023-08-27] MEDS ORDERED: ZOLPIDEM 5 MG TAB PO PRN (13:06)
[2023-08-27] MEDS ORDERED: NALOXONE 0.4 MG/ML 1 ML VIAL IV PRN (13:06)
[2023-08-27] MEDS ORDERED: ONDANSETRON 4 MG/2 ML VIAL IVP PRN (13:06)
[2023-08-27] MEDS ORDERED: SIMETHICONE 80 MG CHEWABLE PO PRN (13:06)
[2023-08-27] MEDS ORDERED: METOCLOPRAMIDE 5 MG/ML 2 ML VIAL IVP PRN (13:06)
[2023-08-27] MEDS ORDERED: diphenhydrAMINE 50 MG/ML 1 ML VIAL IVP PRN ×2 (13:06)
[2023-08-27] MEDS ORDERED: diphenhydrAMINE 25 MG CAP PO PRN (13:06)
--- NOTE | 2023-08-27 13:06 | P.OP ---
Date of Procedure: 08/27/23 Preoperative Diagnosis: IUP at 39-0/7 weeks, history of x 2, desires repeat Postoperative Diagnosis: Same Procedure(s) Performed: Repeat section Anesthesia: spinal Surgeon: Chrissy Fang Family Readiness Support Assistant #1: Franchesca Coyne Estimated Blood Loss (ml): 515 IV fluids (ml): 800 Urine output (ml): 100 (Clear yellow) Pathology: none sent Condition: stable Disposition: observation Indications for Procedure: History of x 2 Operative Findings: Normal uterus tubes and ovaries were appreciated small paraovarian cyst was noted on the left side. Viable male infant delivered at 1229, weight of 7 pounds 3 ounces, Apgars of 9 and 10 at 1 and 5 minutes respectively. Description of Procedure: The patient was prepped and draped in the usual fashion after spinal anesthesia was administered by the anesthesia department. A Pfannenstiel incision was made and extended of the abdominal cavity without difficulty. The bladder peritoneum was elevated and incised and reflected distally. A 2 cm incision was made in the transverse plane of the lower uterine segment to enter the uterus at which time clear fluid was noted. The incision was extended in both directions using the bandage scissors. The head was encountered within the field and delivered up and through the incision where the nose and mouth were thoroughly suctioned. Remainder of the infant was delivered onto the surgical field where the cord was doubly clamped, cut, and the was passed for resuscitative measures with weight and Apgars as noted above. The placenta was delivered manually, intact, and was grossly normal with a grossly normal three-vessel cord. The uterus was exteriorized and the interior cavity of the uterus swept of any remaining placental and membranous fragments with a laparotomy sponge. The margins of the incision were grasped with Allis clamps and the incision closed in 2 layers. First layer was a running locking layer of 0 Vicryl from margin to margin followed by a second layer of imbricating 0 Vicryl from margin to margin. Any small points of bleeding were then made hemostatic with the Bovie. Once hemostasis was achieved, the posterior cul-de-sac was suctioned with a guard and the uterine and ovarian findings are as noted above. Small paraovarian cyst was drained clear fluid obtained. The uterus was replaced wit hin the abdominal cavity and the gutters swept of any remaining blood fluid or clot. The incision was again reexamined and hemostasis was noted to be excellent. Any small point of bleeding were made hemostatic with the Bovie. Once hemostasis was achieved the parietal peritoneum was loosely reapproximated. The layer of muscles were examined and made hemostatic with the Bovie. Attention was then turned to the fascia which was closed with with a running suture of 0 Vicryl from 1 lateral edge to the other.. The subcutaneous tissues were irrigated, made hemostatic with the Bovie, and reapproximated with a running stitch of 30 Vicryl. The skin was reapproximated with 4-0 Vicryl. Estimated blood loss for the case was approximately 515 mL. All sponge instrument and needle counts are correct. There were no complications. The patient tolerated the procedure well and proceeded to the recovery room in stable condition. Both mother and infant are resting comfortably in recovery.
[2023-08-27] MEDS: LACTATED RINGERS 1,000 ML IV SCH ×2 (14:32→18:06)
[2023-08-27] MEDS: IBUPROFEN IV 800 MG in SODIUM CHLORIDE 0.9% 250 ML IV SCH (15:03)
[2023-08-27] MEDS: ACETAMINOPHEN TAB 500 MG TAB PO SCH (16:28)
[2023-08-27] MEDS: ACETAMINOPHEN IV (For NPO) 1,000 MG in EMPTY BAG 1 BAG IVPB SCH (18:05)
[2023-08-27] MEDS: diphenhydrAMINE 50 MG CAP PO PRN (19:41)
[2023-08-27] MEDS: IBUPROFEN 600 MG TAB PO SCH (21:27)
[2023-08-27] MEDS: SENNOSIDES-DOCUSATE SODIUM 1 EACH TAB PO SCH (21:30)
--- NOTE | 2023-08-28 09:36 | P.PNOBGPC ---
Subjective - Subjective Principal diagnosis: Postop day 1, repeat Interval history: Patient is doing well postoperatively. She is ambulating and voiding without difficulty. Her lochia is minimal. She states her pain is well-controlled. Infant is in the nursery for observation. Patient reports: Reports appetite normal, Reports voiding normally, Reports pain well controlled, Reports ambulating normally [place]: doing well (In special care nursery) Objective - Vital Signs Latest vital signs: Vital Signs Temp Pulse Resp BP Pulse Ox 08/28/23 08:00 97.5 F L 83 16 111/76 08/28/23 00:00 97.4 F L 75 16 119/73 97 08/27/23 20:00 97.7 F 83 16 123/79 97 08/27/23 15:03 96.5 F L 70 16 115/73 98 08/27/23 14:48 57 L 16 108/68 98 08/27/23 14:33 64 16 111/73 98 08/27/23 14:18 61 16 117/71 98 08/27/23 14:03 58 L 16 110/64 98 08/27/23 13:48 63 16 110/71 98 08/27/23 13:33 73 16 116/72 98 08/27/23 13:18 67 16 114/69 08/27/23 13:03 96.7 F L 69 16 115/68 99 08/27/23 10:20 96.3 F L 87 16 122/73 100 Intake and Output 08/27/23 08/28/23 08/28/23 22:59 06:59 14:59 Output Total 1850 400 Balance -1850 -400 Output: Urine 1700 400 Uretheral (Rosen) 550 Output, Quantitative 150 Blood Loss Other: Voiding Method Indwelling Catheter Toilet # Voids 1 1 - Exam Extremities: Present: normal, edema Abdomen: Present: normal appearance, soft Incision: Present: normal, dry, intact Uterus: Present: normal, firm - Labs Labs: Abnormal Lab Results - Last 24 Hours (Table) 08/27/23 Range/Units 11:06 Plt Count 149 L (150-450) k/uL Assessment and Plan (1) History of section Current Visit: Yes Status: Acute Code(s): Z98.891 - HISTORY OF UTERINE SCAR FROM PREVIOUS SURGERY SNOMED Code(s): 854881446 (2) Group B streptococcal infection in Current Visit: No Status: Acute Code(s): O98.819 - OTH MATERNAL INFEC/PARASTC DISEASES COMP PREG, UNSP TRI; B95.1 - STREPTOCOCCUS, GROUP B, CAUSING DISEASES CLASSD [facility] SNOMED Code(s): 717531957 (3) Term Current Visit: No Status: Acute Code(s): Z34.80 - ENCOUNTER FOR SUPRVSN OF NORMAL , UNSP TRIMESTER SNOMED Code(s): 73088310 (4) S/P section Current Visit: No Status: Acute Code(s): Z98.891 - HISTORY OF UTERINE SCAR FROM PREVIOUS SURGERY SNOMED Code(s): 508496096 Plan: Patient is doing well postoperatively. Will continue routine postoperative care.
--- NOTE | 2023-08-28 10:36 | P.PN ---
Progress Note - Text 08/27/23 615am . 28-year-old female status post with spinal Duramorph. Patient seen and evaluated for postop pain control, patient has a VAS of 2 with no complaints of nausea vomiting. She does have pruritus which should subside.
[2023-08-28 13:01] LABS: Basophils % (A) 0 %; Eosinophils # (A) 0.1 k/uL (0-0.7); Eosinophils % (A) 1 %; HCT 35.5 % (34.0-46.0); Lymphocytes # (A) 1.3 k/uL (1.0-4.8); Lymphocytes % (A) 14 %; MCH 32.9 pg (25.0-35.0); MCHC 33.9 g/dL (31.0-37.0); Mean Platelet Volume 11.6; Monocytes # (A) 0.5 k/uL (0-1.0); Monocytes % (A) 5 %; Neutrophils # (A) 7.6 k/uL (1.3-7.7); Neutrophils % (A) 79 %; Platelet Count 136 k/uL (150-450); RBC 3.66 m/uL (3.80-5.40); RDW 13.4 % (11.5-15.5); WBC 9.7 k/uL (3.8-10.6)
--- NOTE | 2023-08-29 10:34 | P.PNOBGPC ---
Subjective - Subjective Patient reports: Reports appetite normal, Reports voiding normally, Reports pain well controlled, Reports ambulating normally : doing well, in NICU (Continued observation with blood cultures pending at 48 hours.) Objective - Vital Signs Latest vital signs: Vital Signs Temp Pulse Resp BP Pulse Ox 08/29/23 08:00 97.8 F 87 16 124/65 98 08/29/23 00:04 97.6 F 80 16 124/82 98 08/28/23 15:52 16 08/28/23 15:51 97.5 F L 82 16 123/77 98 Intake and Output 08/28/23 08/29/23 08/29/23 22:59 06:59 14:59 Other: Voiding Method Toilet # Voids 2 2 1 - Exam Extremities: Present: normal Abdomen: Present: normal appearance, soft. Absent: distention, tenderness Incision: Present: normal, dry, intact Uterus: Present: normal, firm - Labs Labs: Abnormal Lab Results - Last 24 Hours (Table) 08/28/23 Range/Units 12:41 RBC 3.66 L (3.80-5.40) m/uL Plt Count 136 L (150-450) k/uL Assessment and Plan (1) S/P section Current Visit: No Status: Acute Code(s): Z98.891 - HISTORY OF UTERINE SCAR FROM PREVIOUS SURGERY SNOMED Code(s): 333920579 Plan: Continue routine and postoperative care. I have again encouraged the patient to ambulate in the hallways routinely. Discharge timing is dependent upon the ongoing care of the infant. When the is ready for discharge or the patient is postoperative day #4, she will then be discharged.
[2023-08-31 07:51] VITALS: BP 122/77; PULSE 83; RESP 16; TEMP 97.6
--- NOTE | 2023-08-31 08:47 | P.DS ---
Providers Date of admission: 08/27/23 10:08 Expected date of discharge: 08/31/23 Attending physician: Chrissy Fang Primary care physician: Stated None - Discharge Diagnosis(es) (1) History of section Current Visit: Yes Status: Acute (2) Group B streptococcal infection in Current Visit: No Status: Acute (3) Term Current Visit: No Status: Acute (4) S/P section Current Visit: No Status: Acute Hospital Course: This is a 28-year-old 3 para 2-0-0-2 at 39 weeks of that presented on 08/27 for scheduled repeat section. Patient denied tubal ligation. Patient had been receiving routine care which had been essentially uncomplicated. Patient was taken back to the operating suite for scheduled repeat section. For full details on the please see the dictated history and physical. Patient delivered a viable male infant at 1229, weight of 7 pounds 3 ounces, Apgars of 9 and 10 at 1 and 5 minutes respectively. Patient's postoperative course has been uneventful. In this postoperative day #3 she is ambulating and voiding without difficulty. She is tolerating a regular diet without nausea or vomiting. States her pain is well- controlled. She denies concerns. She would like discharge home. Infant was taken to the special care nursery on the day of delivery and is doing well and plans for discharge today as well. Patient Condition at Discharge: Good Plan - Discharge Summary Discharge Rx Participant: Yes New Discharge Prescriptions: No Action Pnv No.95/Ferrous Fum/Folic AC [ Multivitamin Tablet] 1 each PO DAILY L.acidoph,Paracasei, B.lactis [Probiotic] 1 each PO DAILY Discharge Medication List Pnv No.95/Ferrous Fum/Folic AC [ Multivitamin Tablet] 1 each PO DAILY 06/05/18 [History] L.acidoph,Paracasei, B.lactis [Probiotic] 1 each PO DAILY 08/24/23 [History] Follow up Appointment(s)/Referral(s): Chrissy Fang DO [Doctor of Osteopathic Medicine] - 2 Weeks Patient Instructions/Handouts: (DC), (GEN) Activity/Diet/Wound Care/Special Instructions: No intercourse, tampons or douching. No heavy lifting greater than a gallon of milk. No driving for two weeks. Call with any fever, shakes or chills, with any pain not alleviated by over the counter meds, or with any quesions or concerns. Discharge Disposition: HOME SELF-CARE
== END 2023-08-31 16:19 | disposition home or self-care (01) | DRG 540 ==
LOC: 4FBP 10:08
PROVIDERS: ADMIT Obstetrics & Gynecology Obstetrics; ATTEND Obstetrics & Gynecology Obstetrics
PROC: 10D00Z1 Extraction of Products of Conception, Low, Open Approach (ICD-10-PCS; principal; 2023-08-27 12:00)
DX: O34.211 Maternal care for low transverse scar from previous cesarean delivery (principal); O34.83 Maternal care for other abnormalities of pelvic organs, third trimester; N83.209 Unspecified ovarian cyst, unspecified side; O98.82 Other maternal infectious and parasitic diseases complicating childbirth; B95.1 Streptococcus, group B, as the cause of diseases classified elsewhere; K21.9 Gastro-esophageal reflux disease without esophagitis; L29.9 Pruritus, unspecified; Z37.0 Single live birth; Z3A.39 39 weeks gestation of pregnancy; Z28.310 Unvaccinated for COVID-19; Z28.21 Immunization not carried out because of patient refusal
CPT/HCPCS: 85025; 86850; 86900; 86901

== ENCOUNTER → 2023-10-15 | Outpatient (CLI) | payer OTHER ==
--- NOTE | 2023-10-15 14:36 | USB ---
Reason for Exam: Clinical finding. Technique: Method: Targeted. Findings: The lateral section of the breast of the left breast, the area of palpable concern of the left breast, the axilla of the left breast and the retroareolar of the left breast were scanned. Hypoechoic well-circumscribed mass at the site of clinical concern 16 cm from the nipple measuring 1.2 cm x 0.7 cm felt to reflect lipoma. Please correlate clinically. Overall Assessment: Benign, BI-RAD 2 Management: Screening Mammogram of both breasts at age 40. A clinical breast exam by your physician is recommended on an annual basis and results should be correlated with mammographic findings. This exam should not preclude additional follow-up of suspicious palpable abnormalities. Results were given to the patient verbally at the time of exam. Electronically signed and approved by: Chance Renteria M.D. [facility]
== END | disposition home or self-care (01) ==
LOC: RADUSWWP 14:00
PROVIDERS: ATTEND Obstetrics & Gynecology Obstetrics
DX: R55 Syncope and collapse (principal)